=== PATIENT | male | born 1985 | race African-American/Black ===

== ENCOUNTER 2019-08-15 17:44 | Emergency (ER) | payer SELFPAY ==
[2019-08-15] MEDS ORDERED: ONDANSETRON HCL IV 4 MG/2 ML VIAL IVP ONE (18:19)
[2019-08-15] MEDS ORDERED: 0.9 % SODIUM CHLORIDE 1000ML 1,000 ML IV SCH (18:30)
[2019-08-15] MEDS ORDERED: LORAZEPAM 2 MG/ML VIAL IV ONE (18:37)
--- NOTE | 2019-08-15 18:40 | Emergency Department Record ---
History of Present Illness - General Stated complaint: VOMITING/FEVER Time Seen by Provider: 08/15/19 18:19 Source: Patient Mode of Arrival: Ambulatory Limitations: No limitations - History of Present Illness Initial comments: 33 yo male presents to ED for evaluation of nausea, vomiting, and back pain symptoms that began this morning. Patient's reports that the patient is an alcoholic, has been unable to drink alcohol today due to his symptoms. Patient denies significant abdominal pain symptoms, reports subjective fever at home. Patient denies health problems at his baseline. MD complaint: Nausea, Vomiting Onset/Timin -: Days(s) Associated Abdominal Pain: No Radiation: Back Severity: Moderate Quality: Aching Consistency: Constant Improves with: None Worsens with: Eating Associated Symptoms: Denies other symptoms - Related Data Previous Rx's Medication Instructions Recorded Ondansetron [Zofran Odt] 4 mg PO Q8H PRN #15 tab.rapdis 08/15/19 Allergies Allergy/AdvReac Type Severity Reaction Status Date / Time No Known Drug Allergies Allergy Verified 08/15/19 19:08 Review of Systems Constitutional: Reports: Fever. Denies: Chills, Malaise, Night sweats Eyes: Denies: Eye discharge, Eye pain ENT: Denies: Congestion, Ear pain, Epistaxis Respiratory: Denies: Cough, Dyspnea Cardiovascular: Denies: Chest pain, Dyspnea on exertion Endocrine: Denies: Fatigue, Heat or cold intolerance Gastrointestinal: Reports: Nausea, Vomiting. Denies: Abdominal pain Genitourinary: Denies: Incontinence, Retention Musculoskeletal: Reports: Back pain. Denies: Arthralgia Skin: Denies: Bruising, Change in color Neurological: Denies: Abnormal gait, Confusion, Headache, Tingling, Tremors Psychiatric: Denies: Anxiety Hematological/Lymphatic: Denies: Anemia, Blood Clots Physical Exam - General General Appearance: Alert, Oriented x3, Cooperative, Moderate distress Limitations: No limitations - Head Head exam: Atraumatic, Normocephalic, Normal inspection Head exam detail: negative: Abrasion, Contusion, Yates's sign, General tenderness, Hematoma - Eye Eye exam: Normal appearance. negative: Conjunctival injection, Periorbital swelling, Periorbital tenderness, Scleral icterus - ENT Ear exam: negative: Auricular hematoma, Auricular trauma Nasal Exam: negative: Active bleeding, Discharge, Dried blood, Foreign body Mouth exam: negative: Drooling, Laceration, Muffled voice, Tongue elevation Throat exam: negative: Tonsillar erythema, Tonsillomegaly, Tonsillar exudate, R peritonsillar mass, L peritonsillar mass - Neck Neck exam: Normal inspection. negative: Meningismus, Tenderness - Respiratory Respiratory exam: Normal lung sounds bilaterally. negative: Respiratory distress, Rhonchi, Stridor, Wheezes - Cardiovascular Cardiovascular Exam: Regular rate, Normal rhythm, Normal heart sounds - GI/Abdominal GI/Abdominal exam: Soft. negative: Distended, Rebound, Rigid, Tenderness - Rectal Rectal exam: Deferred - exam: Deferred - Extremities Extremities exam: Normal inspection. negative: Pedal edema, Tenderness - Back Back exam: Reports: CVA tenderness (R), CVA tenderness (L) - Neurological Neurological exam: Alert, Normal gait, Oriented X3 - Psychiatric Psychiatric exam: Normal affect, Normal mood - Skin Skin exam: Normal color. negative: Abrasion Type of lesion: negative: abrasion Course Vital Signs 08/15/19 18:32 Temperature 98.4 F Pulse Rate [ 78 Pulse Ox Probe] Respiratory 20 Rate Blood Pressure 150/93 [Left Arm] Pulse Ox 100 - Reevaluation(s) Reevaluation #1: 08/15/19 19:24 Laboratory studies were reviewed: WBC 11.7 87% Neutrophils CO2 19 AG 30 AST 65 ALT 59 Lipase 45 Patient's laboratory studies were reviewed, appear c/w alcoholic ketoacidosis. D5 1/2 NS ordered to infuse following NS 1 Liter bolus. Reevaluation #2: 08/15/19 20:08 Patient was reassessed, updated on all results. Patient is appears significantly improved, resting comfortably at this time on his mobile phone. D5 1/2 NS infusing at this time. Will reassess when IVFs have completed infusion. Reevaluation #3: 08/15/19 20:37 CT Abdomen and Pelvis: 1. Mild hepatomegaly 2. No renal calculi or hydronephrosis 3. No intestinal obstruction. Reevaluation #4: 08/15/19 21:13 UA reviewed and appears negative for an acute process. Reevaluation #5: 08/15/19 21:33 Patient reassessed, IVFs completed. Patient reports that he is feeling much improved, tolerating PO. Patient was advised to reduce his alcohol consumption. Patient appears stable for discharge with Zofran as needed as well. Medical Decision Making - Lab Data Result diagrams: 08/15/19 19:00 08/15/19 19:00 Disposition Disposition: Discharge Clinical Impression: Alcoholic ketoacidosis Nausea & vomiting Qualifiers: Vomiting type: unspecified Vomiting Intractability: non-intractable Qualified Code(s): R11.2 - Nausea with vomiting, unspecified Disposition: Home, Self-Care Condition: (2) Stable Instructions: Acute Nausea and Vomiting (ED) Additional Instructions: Return to ED if your symptoms worsen or if you have any concerns. Zofran as directed. Reduce your use of alcohol. Follow-up with your family doctor in 3-5 days as directed. Prescriptions: Ondansetron [Zofran Odt] 4 mg PO Q8H PRN #15 tab.rapdis PRN Reason: Nausea/Vomiting Time of Disposition: 21:35 Quality - Quality Measures Quality Measures: N/A - Blood Pressure Screening Does Patient Have Any of the Following: No Blood Pressure Classification: Hypertensive Reading Systolic Measurement: 150 Diastolic Measurement: 93 Screening for High Blood Pressure: < First Hypertensive BP, F/U Documented > [[id number]] First Hypertensive Follow-up Interventions: Referral to alternative/primary care provider.
[2019-08-15 19:08] LABS: ABSOLUTE NEUTROPHIL COUNT 9.99; HEMATOCRIT 48.8 % (42.0-52.0); MEAN CELL VOLUME 89.7 fl (81-97); MEAN CORPUSCULAR HEMOGLOBIN 29.4 pg (27-33); MEAN CORPUSCULAR HGB CONC 32.8 g/dl (32-36); MEAN PLATELET VOLUME 10.7 fl (7.4-10.4); PLATELET COUNT 193 K/uL (130-400); RED BLOOD COUNT 5.44 M/uL (4.40-5.70); RED CELL DISTRIBUTION WIDTH 14.7 % (11.5-14.5); WHITE BLOOD COUNT W/O DIFF 11.7 K/uL (4.2-12.2)
[2019-08-15 19:15] LABS: BLOOD UREA NITROGEN 13 mg/dL (6-20); EST GLOMERULAR FILTRATION RATE > 60 mL/min; PLATELET ESTIMATE NORMAL (NORMAL)
[2019-08-15 19:16] LABS: LIPASE 45 U/L (13-60); TOTAL PROTEIN 8.4 g/dL (6.6-8.7)
[2019-08-15 19:18] LABS: GLUCOSE,RANDOM 81 mg/dL (74-109)
[2019-08-15 19:20] LABS: ALT/SGPT 59 U/L (<41)
[2019-08-15 19:21] LABS: ALB/GLOB RATIO 2.1 (1.1-1.8); ALBUMIN 5.7 g/dL (4.0-5.0); ALKALINE PHOSPHATASE 102 U/L (40-129); AST/SGOT 65 U/L (10.0-50.0)
[2019-08-15] MEDS ORDERED: DEXTROSE 5 %-0.45 % NACL 1,000 ML IV PRN (19:23)
[2019-08-15 19:24] LABS: INFLUENZA A NEGATIVE (NEGATIVE); INFLUENZA B NEGATIVE (NEGATIVE)
--- NOTE | 2019-08-15 20:29 | CT SCAN REPORT ---
EXAMINATION: CT Abdomen and Pelvis without IV Contrast EXAM DATE: 08/15/2019 8:08 PM TECHNIQUE: Standard protocol CT imaging of the abdomen and pelvis was performed without intravenous c ontrast. INDICATION: nausea, vomiting, back pain, bilateral flank pain as well as central abdominal pain. COMPARISON: None ENCOUNTER: Not applicable CT ABDOMEN AND PELVIS FINDINGS: Lung Bases: Included extent of the lung bases are clear. Hepatobiliary: Mildly enlarged with decreased attenuation consistent with steatosis. Normal gallbladd er. Pancreas: The pancreas is normal. Spleen: The spleen is not enlarged. Adrenals: The adrenal glands are normal. Gastrointestinal: The stomach and small bowel are normal with no obstruction or inflammation. The nuria endix is not seen although there are no pericecal inflammatory changes. The colon is decompressed and is not well evaluated. Reproductive Organs: Unremarkable Lymphatic System: There is no adenopathy within the abdomen or pelvis. Vasculature: Normal caliber abdominal aorta Peritoneum: No free fluid, free air, or inflammation Assessment of the solid organs, soft tissues, and vascular structures is overall limited on noncontra st imaging, IMPRESSION: 1. Mild hepatomegaly with diffuse steatosis. 2. No renal calculi or obvious hydronephrosis. The urinary bladder appears normal. 3. No intestinal obstruction. Dictated by: Sánchez Carreon MD on 08/15/2019 8:24 PM. .
[2019-08-15 20:52] LABS: URINE APPEARANCE CLEAR; URINE BILIRUBIN NEGATIVE (NEGATIVE); URINE BLOOD NEGATIVE (NEGATIVE); URINE COLOR YELLOW; URINE LEUKOCYTE ESTERASE NEGATIVE (NEGATIVE); URINE NITRITE NEGATIVE (NEGATIVE); URINE PROTEIN NEGATIVE (NEGATIVE); URINE UROBILINOGEN 0.2 E.U./dL (0.20 - 1.00)
[2019-08-15] MEDS ORDERED: ONDANSETRON 4 MG ODT TABLET SL ONE (21:33)
== END 2019-08-15 21:45 | disposition home or self-care (01) ==
LOC: ER 17:44
DX: E87.2 Acidosis (principal); R11.2 Nausea with vomiting, unspecified; R19.7 Diarrhea, unspecified; F10.20 Alcohol dependence, uncomplicated; Y90.0 Blood alcohol level of less than 20 mg/100 ml
CPT/HCPCS: 99284 ×2; 96374; 96375; 96361; 83690; 80053; 81003; 87400; 85027; 74176; G0480; J2405; J2060; 80320; J7030